=== PATIENT | female | born 1975 | race Caucasian/White ===

== ENCOUNTER 2021-04-04 08:43 | Outpatient (REF) | payer OTHER, SELFPAY ==
[2021-04-04 11:11] LABS: HBc Num1 0.04 S/CO (0.00-0.79); Hepatitis B Core Antibody Nonreactive (Nonreactive); ~HepC Num1 0.36 S/CO (0.00-0.79); ~Hepatitis C Antibody Nonreactive (Nonreactive)
[2021-04-04 11:13] LABS: Syphilis Screen Nonreactive (Nonreactive)
[2021-04-04 11:15] LABS: HIV AB/AG Nonreactive (Nonreactive); HIV Num 1 0.04 S/CO (0.00-0.99)
[2021-04-04 11:19] LABS: HCG Quantitative < 2 mIU/mL; Thyroid Stimulating Hormone 2.43 uIU/mL (0.32-4.0)
[2021-04-05 02:42] LABS: CT PCR NOT DETECTED (Not Detect.); NG PCR NOT DETECTED (Not Detect.)
[2021-04-05 08:30] LABS: BV Int Neg Control Negative (Negative); BV Int Pos Control Positive (Positive)
[2021-04-07 00:12] LABS: Follicle Stimulating Hormone 4.7 mIU/mL
[2021-04-08 09:27] LABS: HPV mRNA E6/E7 rflx Not Detected (Not Detected)
== END 2021-04-04 08:44 | disposition home or self-care (01) ==
LOC: HO.LAB 08:43
PROVIDERS: PCP Internal Medicine; Visit Provider Advanced Practice Midwife
DX: Z01.411 Encounter for gynecological examination (general) (routine) with abnormal findings (principal); Z11.51 Encounter for screening for human papillomavirus (HPV); Z11.4 Encounter for screening for human immunodeficiency virus [HIV]; Z11.3 Encounter for screening for infections with a predominantly sexual mode of transmission; Z20.2 Contact with and (suspected) exposure to infections with a predominantly sexual mode of transmission; N93.0 Postcoital and contact bleeding; N93.9 Abnormal uterine and vaginal bleeding, unspecified; N92.6 Irregular menstruation, unspecified; N88.9 Noninflammatory disorder of cervix uteri, unspecified; E66.01 Morbid (severe) obesity due to excess calories
CPT/HCPCS: 36415; 83001; 84443; 84702; 86704; 86780; 86803; 87389; 87480; 87491; 87510; 87591; 87624; 87660; 88142

== ENCOUNTER 2021-04-08 12:06 | Outpatient (REF) | payer OTHER, SELFPAY ==
[2021-04-08 14:35] LABS: MANUAL DIFF FLAG NO
[2021-04-08 14:48] LABS: Basophils Percent Auto 0.2 % (0-2); Eosinophils Percent Auto 0.4 % (0-4); Hematocrit 36.5 % (37-47); Hemoglobin 11.4 g/dl (12.0-16.0); Imm Gran Abs Auto 0.05 X10*3/uL (0.00-0.03); Imm Gran Pct Auto 0.5 % (0.0-0.4); Lymphocytes Absolute Auto 2.2 X10*3/uL (1.2-4.9); Lymphocytes Percent Auto 23.6 % (20-40); Mean Corpuscular HGB Conc 31.2 g/dl (31.0-35.0); Mean Corpuscular Hemoglobin 25.8 pg (27.0-33.0); Mean Corpuscular Volume 82.6 fL (80-98); Mean Platelet Volume 10.6 fL (9.4-12.3); Monocytes Absolute Auto 0.4 X10*3/uL (0.1-1.2); Monocytes Percent Auto 4.6 % (2-11); Neutrophils Absolute Auto 6.7 X10*3/uL (2.0-8.3); Neutrophils Percent Auto 70.7 % (45-73); Platelet Count 260 X10*3/uL (160-400); Red Blood Count 4.42 X10*6/uL (4.20-5.50); Red Cell Distribution Width 16.7 % (11.0-16.0); White Blood Count 9.4 X10*3/uL (4.8-10.8)
[2021-04-08 15:05] LABS: Estimated Average Glucose 114 mg/dL; Hemoglobin A1c % 5.6 %
[2021-04-08 15:06] LABS: Alanine Aminotransferase 12 U/L (0-31); Albumin Level 3.9 g/dL (3.5-5.0); Alkaline Phosphatase 98 U/L (39-117); Anion Gap 14 (12-20); Aspartate Amino Transferase 11 U/L (5-31); Bilirubin Total 0.4 mg/dL (0.0-1.0); Blood Urea Nitrogen 17 mg/dL (9-16); Carbon Dioxide 28 mmol/L (22-29); Chloride 102 mmol/L (96-108); Estimated Glomerular Filt Rate > 60; Glucose Random 92 mg/dL (60-115); Potassium 3.9 mmol/L (3.3-5.1); Sodium 140 mmol/L (135-145); Total Protein 6.4 g/dL (6.5-8.0)
== END 2021-04-08 12:07 | disposition home or self-care (01) ==
LOC: HO.HMGCLDS 12:06
PROVIDERS: PCP Internal Medicine; Visit Provider Internal Medicine
DX: E66.01 Morbid (severe) obesity due to excess calories (principal); F33.9 Major depressive disorder, recurrent, unspecified; F41.1 Generalized anxiety disorder; I10 Essential (primary) hypertension; R73.03 Prediabetes; Z91.09 Other allergy status, other than to drugs and biological substances
CPT/HCPCS: 36415; 80053; 83036; 85025

== ENCOUNTER 2021-04-13 14:18 | Outpatient (REF) | payer OTHER, SELFPAY ==
--- NOTE | ~2021-04-13 | US_ITS ---
EXAMINATION: PELVIC ULTRASOUND CLINICAL INFORMATION: Bleeding COMPARISON: Previous pelvic ultrasound most recent February 2019 TECHNIQUE: Transabdominal and transvaginal pelvic ultrasound was performed. Transvaginal exam was performed for better visualization of uterus and ovaries. FINDINGS: The uterus is retroverted and measures 9.3 x 4.5 x 4.9 cm in dimension. There is a 2 x 1.3 x 1.9 cm hypoechoic lesion in the right posterior uterine body suggestive of a fibroid. This is unchanged. No other focal uterine lesion is seen. Endometrial thickness is normal measuring 0.8 cm. There are nabothian cysts in the cervix. The right ovary measures 4 x 2.6 x 2.7 cm. There is a 3.3 x 2 x 2 cm right ovarian cyst. The left ovary measures 2.4 x 1.8 x 1.4 cm and is normal-appearing. There is no fluid in the pelvis. US/US pelvic and transvaginal IMPRESSION: Small uterine fibroid. 2 x 3 cm right ovarian cyst.
== END 2021-04-13 14:19 | disposition home or self-care (01) ==
LOC: HO.US 14:18
PROVIDERS: Visit Provider Advanced Practice Midwife
DX: N93.9 Abnormal uterine and vaginal bleeding, unspecified (principal); N93.0 Postcoital and contact bleeding
CPT/HCPCS: 76830; 76856

== ENCOUNTER → 2021-04-27 11:08 | Outpatient (BNVA) | payer OTHER, SELFPAY | PROVIDERS: PCP Internal Medicine; Visit Provider Advanced Practice Midwife ==

== ENCOUNTER 2021-04-29 16:35 | Outpatient (REF) | payer OTHER, SELFPAY | END 2021-04-29 16:36 | disposition home or self-care (01) | LOC: HO.LNP 16:35 | PROVIDERS: Visit Provider Hospitalist | DX: R30.0 Dysuria (principal) | CPT/HCPCS: 87086; 87088; 87186 ==

== ENCOUNTER 2021-05-10 10:15 | Outpatient (REF) | payer OTHER, SELFPAY | END 2021-05-10 10:16 | disposition home or self-care (01) | LOC: HO.LAB 10:15 | PROVIDERS: PCP Internal Medicine; Visit Provider Obstetrics & Gynecology | DX: N93.0 Postcoital and contact bleeding (principal) | CPT/HCPCS: 58100; 88305 ==

== ENCOUNTER 2021-05-11 13:15 | Outpatient (REF) | payer OTHER, SELFPAY ==
--- NOTE | ~2021-05-11 | MM_ITS ---
EXAMINATION: MM SCREENING DIGITAL BREAST TOMOSYNTHESIS, BILATERAL CLINICAL INFORMATION: Screening. Asymptomatic. The lifetime risk of breast cancer based on the Tyrer-Cuzick Model is 8%. COMPARISON: Mammography: 09/07/2015 (baseline) TECHNIQUE: Digital breast tomosynthesis is performed in both the craniocaudal and mediolateral oblique views along with computer-aided detection (CAD). Synthesized 2D images are generated from the tomosynthesis. FINDINGS: There are scattered areas of fibroglandular density (ACR BI-RADS breast composition Category b). The left breast is similar to prior exam 2014. There is no developing density or interval mass or architectural abnormality. Neither breast shows abnormal calcifications. The bilateral axilla and skin contours are unremarkable. Right breast has smooth oval nodule mid 3:00 position more conspicuous on current study and measuring approximately 0.9 x 0.7 cm. This may represent a cyst. Patient will be recalled to further characterize. MM/MM tomosynthesis screening BI IMPRESSION: 1. Right: Smooth oval nodule mid 3:00 position under 1 cm. 2. Left: No mammographic evidence of malignancy. ASSESSMENT: BI-RADS 0: Incomplete - Need Additional Imaging Evaluation RECOMMENDATION: 1. Targeted ultrasound right breast. 2. Radiology department staff will contact the patient for additional imaging. This patient's information was entered into a reminder system with a target due date for their next mammogram.
== END 2021-05-11 13:16 | disposition home or self-care (01) ==
LOC: HO.MAMMO 13:15
PROVIDERS: PCP Internal Medicine; Visit Provider Internal Medicine
DX: Z12.31 Encounter for screening mammogram for malignant neoplasm of breast (principal)
CPT/HCPCS: 77063; 77067

== ENCOUNTER 2021-05-17 13:02 | Outpatient (REF) | payer OTHER, SELFPAY ==
--- NOTE | ~2021-05-17 | US_ITS ---
EXAMINATION: US DIAGNOSTIC ULTRASOUND BREAST, RIGHT CLINICAL INFORMATION: Recall from screening for smooth nodule mid inner right breast just under 1 cm, possibly a cyst. COMPARISON: Mammography 05/11/2021, 09/07/2015 (baseline). TECHNIQUE: Ultrasound right breast is targeted to the inner quadrant with grayscale imaging and color Doppler without and with harmonics. FINDINGS: There is a circumscribed macrolobulated otherwise smooth nodule 2:00 position 7 cm from nipple measuring 1.1 x 0.7 cm. There is no increased or decreased through transmission of sound. No definite internal color flow. This corresponds to the finding on mammography, possibly fibroadenoma. Ultrasound-guided core sampling is recommended to confirm. Results are discussed with the patient at time of visit. Results and recommendation called to office ([facility]) for Dr. Gissell Galvan on 05/17/2021. US/US breast RT limited IMPRESSION: Smooth macrolobulated nodule 1.1 cm 2:00 position without posterior sound characteristics, possibly fibroadenoma. ASSESSMENT: BI-RADS 4: Suspicious (subcategory 4A: Low suspicion for malignancy) RECOMMENDATION: Ultrasound-guided core biopsy right breast nodule. This patient's information was entered into a reminder system with a target due date for their next mammogram.
== END 2021-05-17 13:03 | disposition home or self-care (01) ==
LOC: HO.MAMMO 13:02
PROVIDERS: Visit Provider Internal Medicine
DX: N63.15 Unspecified lump in the right breast, overlapping quadrants (principal)
CPT/HCPCS: 76642

== ENCOUNTER 2021-05-25 09:51 | Outpatient (REF) | payer OTHER, SELFPAY ==
--- NOTE | ~2021-05-25 | MM_ITS ---
EXAMINATION: ULTRASOUND GUIDED CORE BIOPSY BREAST, RIGHT POST PROCEDURE DIGITAL MAMMOGRAM, RIGHT CLINICAL INFORMATION: Smooth nodule mid inner right breast, possibly fibroadenoma. COMPARISON: Mammography 05/11/2021, targeted right breast ultrasound 05/17/2021. FINDINGS: Proper informed consent is obtained from the patient after discussion of the procedure, potential risks and complications, and alternatives. Patient was given an opportunity for questions. The patient appeared to understand. The patient consented to the procedure and signed the consent form. GUIDANCE: Ultrasound-guided; aseptic technique. LESION: Smooth macrolobulated nodule 2:00 right breast, possibly fibroadenoma. APPROACH: Oblique mediolateral. ANESTHESIA: 15 mL 1% lidocaine. DERMATOTOMY: Single skin mayra dermatotomy performed. NEEDLE: 14-gauge Achieve core biopsy device with 13.5-gauge co-axial guide needle. CORES: 5. CLIP: HydroMARK; shape: butterfly. POST PROCEDURE UNILATERAL DIGITAL MAMMOGRAM: The post biopsy mammogram is performed in separate room using separate digital mammography equipment from the biopsy procedure. CC and ML views are obtained. There are scattered areas of fibroglandular density (breast composition category: b). The clip marker is in position. No gross hematoma. The patient tolerated the procedure well. No immediate complications. Home instructions reviewed with the patient. Final pathology results are pending. MM/MM diagnostic mammo unilat RT IMPRESSION: 1. Status post ultrasound-guided core biopsy right breast. 2. Clip placed: HydroMARK; shape: butterfly. 3. Pathology pending. An addendum report will be issued.
== END 2021-05-25 09:52 | disposition home or self-care (01) ==
LOC: HO.MAMMO 09:51
PROVIDERS: Visit Provider Surgery
DX: N63.15 Unspecified lump in the right breast, overlapping quadrants (principal)
CPT/HCPCS: 19083; 77065; 88305; 88341; 88342; 88360; 99202

== ENCOUNTER → 2021-06-01 09:56 | Outpatient (BNVA) | payer OTHER, SELFPAY | PROVIDERS: PCP Internal Medicine; Visit Provider Surgery | DX: N63.10 Unspecified lump in the right breast, unspecified quadrant (principal) | CPT/HCPCS: 99212 ==

== ENCOUNTER 2021-08-02 10:41 | Outpatient (REF) | payer OTHER, SELFPAY | END 2021-08-02 10:42 | disposition home or self-care (01) | LOC: HO.HMGCLDS 10:41 | PROVIDERS: PCP Internal Medicine; Visit Provider Pediatrics | DX: J30.5 Allergic rhinitis due to food (principal) | CPT/HCPCS: 36415 ==

== ENCOUNTER 2021-08-22 09:23 | Outpatient (REF) | payer OTHER, SELFPAY ==
[2021-08-22 10:41] LABS: MANUAL DIFF FLAG NO
[2021-08-22 10:58] LABS: Basophils Percent Auto 0.2 % (0-2); Eosinophils Absolute Auto 0.2 X10*3/uL (0.0-0.4); Eosinophils Percent Auto 1.7 % (0-4); Hematocrit 33.8 % (37-47); Imm Gran Abs Auto 0.02 X10*3/uL (0.00-0.03); Imm Gran Pct Auto 0.2 % (0.0-0.4); Lymphocytes Absolute Auto 2.4 X10*3/uL (1.2-4.9); Lymphocytes Percent Auto 27.5 % (20-40); Mean Corpuscular HGB Conc 32.5 g/dl (31.0-35.0); Mean Corpuscular Hemoglobin 26.1 pg (27.0-33.0); Mean Corpuscular Volume 80.3 fL (80-98); Mean Platelet Volume 10.5 fL (9.4-12.3); Monocytes Absolute Auto 0.4 X10*3/uL (0.1-1.2); Monocytes Percent Auto 4.3 % (2-11); Neutrophils Absolute Auto 5.8 X10*3/uL (2.0-8.3); Neutrophils Percent Auto 66.1 % (45-73); Platelet Count 253 X10*3/uL (160-400); Red Blood Count 4.21 X10*6/uL (4.20-5.50); Red Cell Distribution Width 16.3 % (11.0-16.0); White Blood Count 8.8 X10*3/uL (4.8-10.8)
[2021-08-22 11:24] LABS: Alanine Aminotransferase 15 U/L (0-31); Albumin Level 3.7 g/dL (3.5-5.0); Alkaline Phosphatase 82 U/L (39-117); Anion Gap 10 (12-20); Aspartate Amino Transferase 13 U/L (5-31); Bilirubin Total 0.4 mg/dL (0.0-1.0); Blood Urea Nitrogen 14 mg/dL (9-16); Calcium 8.7 mg/dL (8.4-10.2); Carbon Dioxide 27 mmol/L (22-29); Chloride 106 mmol/L (96-108); Cholesterol 192 mg/dL; Estimated Glomerular Filt Rate > 60; Glucose Random 113 mg/dL (60-115); HDL Cholesterol 45 mg/dL; LDL Cholesterol Calculated 129 mg/dl; Potassium 3.6 mmol/L (3.3-5.1); Sodium 139 mmol/L (135-145); Triglycerides 92 mg/dL
[2021-08-23 18:31] LABS: CRP High Sensitivity >10.0 mg/L
== END 2021-08-22 09:24 | disposition home or self-care (01) ==
LOC: HO.LAB 09:23
PROVIDERS: PCP Internal Medicine; Referring Provider Internal Medicine; Visit Provider Internal Medicine Cardiovascular Disease
DX: I25.10 Atherosclerotic heart disease of native coronary artery without angina pectoris (principal); I45.10 Unspecified right bundle-branch block; R00.2 Palpitations; I10 Essential (primary) hypertension; E78.5 Hyperlipidemia, unspecified; F41.1 Generalized anxiety disorder; F33.9 Major depressive disorder, recurrent, unspecified; R73.03 Prediabetes; Z91.89 Other specified personal risk factors, not elsewhere classified; Z91.09 Other allergy status, other than to drugs and biological substances; Z79.899 Other long term (current) drug therapy; Z87.891 Personal history of nicotine dependence
CPT/HCPCS: 36415; 80053; 80061; 85025; 86141; 99202

== ENCOUNTER 2021-09-05 13:31 | Outpatient (REF) | payer OTHER, SELFPAY ==
[2021-09-05 17:05] LABS: Cholesterol 147 mg/dL; HDL Cholesterol 41 mg/dL; LDL Cholesterol Calculated 82 mg/dl; Triglycerides 121 mg/dL
== END 2021-09-05 13:32 | disposition home or self-care (01) ==
LOC: HO.HMGCLDS 13:31
PROVIDERS: PCP Internal Medicine; Visit Provider Internal Medicine Cardiovascular Disease
DX: I10 Essential (primary) hypertension (principal)
CPT/HCPCS: 36415; 80061

== ENCOUNTER 2021-09-09 11:14 | Outpatient (REF) | payer OTHER, SELFPAY ==
[2021-09-09 13:54] LABS: MANUAL DIFF FLAG NO
[2021-09-09 14:01] LABS: Basophils Percent Auto 0.4 % (0-2); Eosinophils Absolute Auto 0.1 X10*3/uL (0.0-0.4); Eosinophils Percent Auto 0.8 % (0-4); Hematocrit 37.4 % (37.0-47.0); Hemoglobin 11.9 g/dl (12.0-16.0); Imm Gran Abs Auto 0.02 X10*3/uL (0.00-0.03); Imm Gran Pct Auto 0.3 % (0.0-0.4); Lymphocytes Absolute Auto 2.4 X10*3/uL (1.2-4.9); Lymphocytes Percent Auto 33.9 % (20-40); Mean Corpuscular HGB Conc 31.8 g/dl (31.0-35.0); Mean Corpuscular Hemoglobin 26.4 pg (27.0-33.0); Mean Corpuscular Volume 83.1 fL (80.0-98.0); Mean Platelet Volume 11.1 fL (9.4-12.3); Monocytes Absolute Auto 0.4 X10*3/uL (0.1-1.2); Monocytes Percent Auto 5.5 % (2-11); Neutrophils Absolute Auto 4.2 x10*3/uL (2.0-8.3); Neutrophils Percent Auto 59.1 % (45-73); Platelet Count 243 X10*3/uL (160-400); Red Cell Distribution Width 16.3 % (11.0-16.0); White Blood Count 7.1 X10*3/uL (4.8-10.8)
[2021-09-09 14:24] LABS: C Reactive Protein 1.72 mg/dL (< or = 0.50)
== END 2021-09-09 11:15 | disposition home or self-care (01) ==
LOC: HO.HMGCLDS 11:14
PROVIDERS: PCP Internal Medicine; Visit Provider Internal Medicine Cardiovascular Disease
DX: D64.9 Anemia, unspecified (principal); R79.82 Elevated C-reactive protein (CRP)
CPT/HCPCS: 36415; 85025; 86140

== ENCOUNTER → 2021-09-26 10:12 | Outpatient (REF) | payer OTHER, SELFPAY ==
--- NOTE | 2021-09-26 10:16 | CA_ITS ---
Transthoracic Echocardiogram Patient (Last, First, Middle): Lilia Hoffman A Gender: Female Date of : 1975 Age: 46 Procedure Date: 09/26/2021 Procedure Type: Transthoracic Echocardiogram Location: OP Height: 170.18 cm Weight: 136.08 kg BSA: 2.40 m2 Heart Rate: bpm BP: 120 / 80 mmHg Cnp: EMMANUELLE Referring MD: Naveen Hanley MD Symptoms: R00.2 - Palpitations Study Quality: Fair ECG Rhythm: Sinus Conclusions: - The left ventricular systolic function is normal. The calculated ejection fraction is 59% by biplane method. - No obvious valvular pathology seen on this study. Findings Left Ventricle Normal left ventricular cavity size. There is normal left ventricular wall thickness. The left ventricular systolic function is normal. The calculated ejection fraction is 59% by biplane method. There is no evidence of regional wall motion abnormalities. Diastolic function is normal for age. Right Ventricle Normal right ventricular cavity size and systolic function. Atria Both atria are normal in size. Aortic Valve There is a normal trileaflet aortic valve. There is no aortic valve stenosis. There is no aortic valve regurgitation. Mitral Valve The mitral valve appears normal. There is trace mitral valve regurgitation. There is no mitral valve stenosis. Pulmonic Valve The pulmonic valve was not well visualized. Tricuspid Valve Normal tricuspid valve structure. There is trace tricuspid valve regurgitation. The pulmonary artery systolic pressure is normal. Great Vessels The aortic annulus, sinuses of valsalva, asc aorta, and aortic arch are normal in size. Venous The inferior vena cava is normal in size and collapses greater than 50% with inspiration. Pericardium/Pleural There is no evidence of pericardial effusion. Prior Study Comparison No significant change compared to prior study dated: 09/07/2015. Recommendations, Care & Conclusions No obvious valvular pathology seen on this study. Measurements 2D Linear Measurements IVSd: 0.85 0.6-0.9/0.6-1.0 cm LVIDd: 5.65 3.9-5.3/4.2-5.9 cm LVIDd Index: 2.35 2.4-3.2/2.2-3.1 cm/m2 LVIDs: 3.56 2.0-3.6 cm LVPWd: 0.83 0.7-1.1 cm Ao Root: 3.00 2.1-3.5 cm LA Diam: 3.60 2.7-3.8/3.0-4.0 cm LAIDs Index: 1.50 1.5-2.3 cm/m2 LV Mass: 221.17 67-162/88-224 g LV Mass Index: 92.15 43-95/49-115 g/m2 LVOT Diam: 2.30 3.0+(-)1.3 cm 2D Systolic Function EF 4C: 59.50 >55% EF 2C: 57.90 >55% EF BiP: 59.10 >55% Mitral Valve MV Pk E: 0.74 MV PK A: 0.58 MV Decel Time: 255.00 E/A: 1.30 E'Lateral: 10.20 E'Medial: 9.14 E/E' Med: 8.10 E/E' Lat: 7.20 PHT: 75.00 MVA PHT: 2.93 Decel [place]: 2.89 Aortic Valve AoV Pk Lambert: 1.52 AoV Mn Lambert: 1.00 AoV VTI: 0.35 AoV Pk Grad: 9.00 Aov Mn Grad: 5.00 GHULAM Cont.VTI: 2.46 LVOT LVOT Pk Lambert: 0.94 LVOT Mn Lambert: 0.64 LVOT VTI: 0.21 LVOT Pk Grad: 4.00 LVOT Mn Grad: 2.00 LVOT Diam: 2.30 LVOT Area: 4.15 Diastolic Function MV Pk E: 0.74 MV Pk A: 0.58 E/A: 1.30 E'Medial: 9.14 E/E' Med: 8.10 E' Laterial: 10.20 E/E' Lat: 7.20 Right Ventricle TAPSE (mm): 2.38 TVS' Lambert: 11.50 Tricuspid Valve TR Pk Lambert: 1.98 TR Pk Grad: 16.00 RA Press: 3.00 RVSP: 19.00 Great Vessels Aorta Ao Root-2D: 3.00 2.0-3.7 cm Ao Asc: 3.30 2.1-3.4 cm Ao Arch: 2.60 Pulmonary Valve PV Pk Lambert: 1.29 Peak PV Grad: 7.00 Updated in Other Vendor System with Status of Final Rommel Ramirez MD electronically signed on 09/27/2021 4:47:21 PM with status of Final
--- NOTE | 2021-09-26 10:16 | HM_ITS ---
Conclusion: 1. Patient was monitored for total period of 6 days and 23 hours 2. Baseline of normal sinus rhythm with average heart of 77 beats per minute 3. No significant pauses or bradycardia noted 4. Rare ectopy 5. No patient reported events MTDD
== END ==
LOC: HO.CARD 10:12
PROVIDERS: Visit Provider Internal Medicine Cardiovascular Disease
DX: R00.2 Palpitations (principal)
CPT/HCPCS: 93242; 93306

== ENCOUNTER → 2021-10-11 14:52 | Outpatient (BNVA) | payer OTHER, SELFPAY | PROVIDERS: PCP Internal Medicine; Referring Provider Internal Medicine; Visit Provider Nurse Practitioner Family | DX: R00.2 Palpitations (principal); I10 Essential (primary) hypertension; E66.01 Morbid (severe) obesity due to excess calories; R73.03 Prediabetes; Z82.49 Family history of ischemic heart disease and other diseases of the circulatory system | CPT/HCPCS: 99212 ==

== ENCOUNTER → 2022-01-10 12:25 | Outpatient (BNVA) | payer OTHER, SELFPAY | PROVIDERS: PCP Internal Medicine; Referring Provider Internal Medicine; Visit Provider Internal Medicine Cardiovascular Disease | DX: I25.10 Atherosclerotic heart disease of native coronary artery without angina pectoris (principal); I10 Essential (primary) hypertension; R00.2 Palpitations; Z79.899 Other long term (current) drug therapy | CPT/HCPCS: 99212 ==

== ENCOUNTER 2022-07-21 12:53 | Outpatient (REF) | payer OTHER, SELFPAY ==
[2022-07-21 13:52] LABS: MANUAL DIFF FLAG NO
[2022-07-21 14:05] LABS: Basophils Percent Auto 0.4 % (0-2); Eosinophils Absolute Auto 0.1 X10*3/uL (0.0-0.4); Eosinophils Percent Auto 1.3 % (0-4); Hematocrit 38.7 % (37.0-47.0); Hemoglobin 12.4 g/dl (12.0-16.0); Imm Gran Abs Auto 0.02 X10*3/uL (0.00-0.03); Imm Gran Pct Auto 0.3 % (0.0-0.4); Lymphocytes Absolute Auto 2.4 X10*3/uL (1.2-4.9); Lymphocytes Percent Auto 30.8 % (20-40); Mean Corpuscular Hemoglobin 26.3 pg (27.0-33.0); Mean Corpuscular Volume 82.2 fL (80.0-98.0); Mean Platelet Volume 10.8 fL (9.4-12.3); Monocytes Absolute Auto 0.4 X10*3/uL (0.1-1.2); Monocytes Percent Auto 4.8 % (2-11); Neutrophils Absolute Auto 4.9 x10*3/uL (2.0-8.3); Neutrophils Percent Auto 62.4 % (45-73); Platelet Count 258 X10*3/uL (160-400); Red Blood Count 4.71 X10*6/uL (4.20-5.50); White Blood Count 7.9 X10*3/uL (4.8-10.8)
[2022-07-21 14:27] LABS: Alanine Aminotransferase 17 U/L (0-31); Albumin Level 4.1 g/dL (3.5-5.0); Alkaline Phosphatase 83 U/L (39-117); Anion Gap 16 (12-20); Aspartate Amino Transferase 14 U/L (5-31); Bilirubin Total 0.4 mg/dL (0.0-1.0); Blood Urea Nitrogen 17 mg/dL (9-16); C Reactive Protein 1.19 mg/dL (< or = 0.50); Calcium 9.4 mg/dL (8.4-10.2); Carbon Dioxide 28 mmol/L (22-29); Chloride 103 mmol/L (96-108); Estimated Glomerular Filt Rate > 60; Glucose Random 85 mg/dL (60-115); Potassium 3.8 mmol/L (3.3-5.1); Sodium 143 mmol/L (135-145); Total Protein 6.8 g/dL (6.5-8.0)
[2022-07-21 14:41] LABS: TSH reflex Free T4 2.32 uIU/mL (0.32-4.0)
== END 2022-07-21 12:54 | disposition home or self-care (01) ==
LOC: HO.HMGCLDS 12:53
PROVIDERS: PCP Internal Medicine; Visit Provider Internal Medicine
DX: Z00.01 Encounter for general adult medical examination with abnormal findings (principal); E66.01 Morbid (severe) obesity due to excess calories; F33.9 Major depressive disorder, recurrent, unspecified; F41.1 Generalized anxiety disorder; M25.50 Pain in unspecified joint; R73.03 Prediabetes; I25.10 Atherosclerotic heart disease of native coronary artery without angina pectoris; Z91.09 Other allergy status, other than to drugs and biological substances; M17.0 Bilateral primary osteoarthritis of knee; R79.82 Elevated C-reactive protein (CRP); I10 Essential (primary) hypertension
CPT/HCPCS: 36415; 80053; 84443; 85025; 86140

== ENCOUNTER → 2022-09-28 10:00 | Outpatient (BNVA) | payer OTHER, SELFPAY | PROVIDERS: PCP Internal Medicine; Visit Provider Nurse Practitioner Family | DX: R06.83 Snoring (principal); R40.0 Somnolence | CPT/HCPCS: 99202 ==

== ENCOUNTER → 2022-12-03 20:30 | Outpatient (REF) | payer OTHER, SELFPAY | LOC: HO.SL 20:30 | PROVIDERS: Visit Provider Nurse Practitioner Family | DX: G47.9 Sleep disorder, unspecified (principal); R06.83 Snoring | CPT/HCPCS: 95810 ==

== ENCOUNTER → 2022-12-22 10:23 | Outpatient (BNVA) | payer OTHER, SELFPAY | PROVIDERS: PCP Internal Medicine; Visit Provider Nurse Practitioner Family | DX: G47.9 Sleep disorder, unspecified (principal); R06.83 Snoring; R53.83 Other fatigue | CPT/HCPCS: 99212 ==

== ENCOUNTER → 2023-01-11 13:00 | Outpatient (BNVA) | payer OTHER, SELFPAY | PROVIDERS: PCP Internal Medicine; Referring Provider Internal Medicine; Visit Provider Internal Medicine Cardiovascular Disease | DX: I25.10 Atherosclerotic heart disease of native coronary artery without angina pectoris (principal); I10 Essential (primary) hypertension; E78.5 Hyperlipidemia, unspecified; E66.01 Morbid (severe) obesity due to excess calories; Z68.43 Body mass index [BMI] 50.0-59.9, adult | CPT/HCPCS: 93005; 99212 ==

== ENCOUNTER 2023-04-16 12:32 | Outpatient (REF) | payer OTHER, SELFPAY ==
--- NOTE | ~2023-04-16 | MM_ITS ---
EXAMINATION: MM SCREENING DIGITAL BREAST TOMOSYNTHESIS, BILATERAL CLINICAL INFORMATION: Screening. Asymptomatic. Benign right ultrasound-guided core biopsy 05/25/2021 (fibroadenoma). The lifetime risk of breast cancer based on the Tyrer-Cuzick Model is 9%. COMPARISON: Mammography: 05/25/2021, 05/11/2021, 09/07/2015 (baseline) TECHNIQUE: Digital breast tomosynthesis is performed in both the craniocaudal and mediolateral oblique views along with computer-aided detection (CAD). Synthesized 2D images are generated from the tomosynthesis. Additional left MLO view is provided. FINDINGS: There are scattered areas of fibroglandular density (ACR BI-RADS breast composition Category b). There are no significant masses, abnormal calcifications, or other abnormalities. Parenchymal pattern is similar to prior exam. There are scattered minor asymmetries again seen. No architectural abnormality. There is biopsy clip marker mid upper inner right breast. The axilla and skin contours are unremarkable. MM/MM tomosynthesis screening BI IMPRESSION: No mammographic evidence of malignancy. ASSESSMENT: BI-RADS 2: Benign RECOMMENDATION: Routine annual mammography screening. This patient's information was entered into a reminder system with a target due date for their next mammogram.
== END 2023-04-16 12:33 | disposition home or self-care (01) ==
LOC: HO.MAMMO 12:32
PROVIDERS: PCP Internal Medicine; Visit Provider Internal Medicine
DX: Z12.31 Encounter for screening mammogram for malignant neoplasm of breast (principal)
CPT/HCPCS: 77063; 77067

== ENCOUNTER 2023-05-15 11:21 | Outpatient (AMB) | payer OTHER, SELFPAY ==
[2023-05-15 11:27] VITALS: BP 120/68; PULSE 105; O2SAT 98; BMI 39.8
--- NOTE | 2023-05-15 11:27 | MHC.PC.OV ---
Vital Signs 05/15/23 11:27 Height 5 ft 6.7 in Weight 252 lb 2 oz BMI 39.8 BP 120/68 Blood Pressure Location Lt brachial Position Sitting Pulse 105 H Pulse Source Pulse Oximeter Pulse Oximetry (%) 98 Oxygen Delivery Method Room Air Intake Visit Reasons: Annual PE Allergies animal dander [PET DANDER] Allergy (Unknown, Verified 05/15/23 11:30) Full body whelts environmental allergies Allergy (Unknown, Verified 05/15/23 11:30) Full body whelts erythromycin base Allergy (Unknown, Verified 05/15/23 11:30) GI irritation, abd pain, flushing flaxseed Allergy (Unknown, Verified 05/15/23 11:30) Unknown mold [MOLD] Allergy (Unknown, Verified 05/15/23 11:30) FUll body whelts amoxicillin [From Augmentin] Adverse Reaction (Intermediate, Verified 05/15/23 11:30) Stomach upset, Nausea, vomiting clavulanic acid [From Augmentin] Adverse Reaction (Intermediate, Verified 05/15/23 11:30) Stomach upset, Nausea, vomiting gold sodium thiosulfate Allergy (Severe, Uncoded 01/19/23 13:11) Swelling Amoranth Allergy (Unknown, Uncoded 01/19/23 13:11) Unknown Tea Allergy (Unknown, Uncoded 01/19/23 13:11) unknown Medication List - Last Reconciled 05/15/23 by Zohaib Galvan MD ascorbic acid (vitamin C) ER 500 mg PO .everyother day buspirone 10 mg PO BID 90 days cetirizine (Zyrtec) 10 mg PO DAILY PRN cranberry 400 mg PO DAILY epinephrine IM ferrous sulfate 324 mg PO DAILY lisinopril-hydrochlorothiazide 20-25 mg 1 tab PO DAILY 90 days magnesium 200 mg PO DAILY rosuvastatin 20 mg PO DAILY Tobacco use date assessed: 05/15/23 Dental Screening Dental Screen Date: 05/15/23 Did you have a dental visit in the last 12 months?: No Did you have a dental problem in the last 6 months where you did not have access to dental care?: No Was dental information given to patient?: No HPI Annual PE HPI Details Annual physical exam Blood pressure is stable patient is taking all her medication She is also seeing psych med provider and is in process of tapering Cymbalta patient is on buspirone and she will continue that for anxiety Mammogram was March of this year 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 Follow-up 6 months physical exam 1 year Physical exam was limited due to body habitus Patient uses cane to walk Breast exams through [facility] Medical History Breast mass, right Degenerative disc disease Family history of early CAD High cholesterol History of anxiety History of depression Hx of migraine headaches Hypertension Morbid obesity Morbid obesity Osteoarthritis Panic attacks PTSD (post-traumatic stress disorder) TMJ (dislocation of temporomandibular joint) Surgical History History of foot surgery History of knee surgery Family History Father Diabetes mellitus HTN (hypertension) Hyperlipidemia CVD (cardiovascular disease) Myocardial infarction Stroke Mother Diabetes mellitus HTN (hypertension) Cervical cancer Maternal Grandmother Alzheimer's disease Maternal Grandfather Alzheimer's disease Paternal Grandfather Brain cancer Tongue cancer Paternal Grandmother Breast cancer Maternal Aunt Diabetes mellitus CVD (cardiovascular disease) Heart disease Brother No problems noted. Brother No problems noted. Sister No problems noted. Sister No problems noted. Son No problems noted. Son No problems noted. Son No problems noted. Daughter No problems noted. Other Mental health disorder Substance use disorder Social History Housing: House Alcohol intake: current Alcohol intake frequency: holidays/special occasions only Patient Tobacco Use Status: Former Tobacco user (15 years ago ) Years Smoked: 10 years e-Cigarette/Vaping Use: Never Used service: No Current occupational status: unemployed Cognitive needs: No Hearing needs: No Vision needs: Yes Female Reproductive History Menstrual Age of Menarche: 11 Questionnaire Thrive Questionnaire Date Thrive assessed: 11/21/22 AUDIT C Alcohol Use Questionnaire (AUDIT-C) 1. How often do you have a drink containing alcohol?: Never 3. How often do you have six or more drinks on one occasion?: Never Total Score: 0 Score Reviewed/Action Taken: Yes CRYSTAL-7 AMB Questionnaire CRYSTAL-7 Date CRYSTAL - 7 assessed: 11/21/22 Source: Developed by Drs. Goyo Gil, Rupali Romeo, Heladio Tam and colleagues, with an educational clinton from [employer]. Review of Systems Const Denies chills, Denies fever(s) and Denies headache(s) Eyes Denies blurry vision ENT Denies headache(s), Denies nasal discharge, Denies nasal obstruction, Denies odynophagia and Denies sinus pain Card Denies chest pain at rest and Denies chest pain with activity Resp Denies cough and Denies hemoptysis GI Denies diarrhea, Denies odynophagia, Denies vomiting and Denies hematemesis Reports as per HPI Skin/Breast Reports as per HPI Neuro Denies Neuro-related abnormal movements, Denies Abnormal speech present and Denies headache(s) Psych Denies mood swings and Denies paranoia Endo Reports as per HPI Marciano/Lymph Reports as per HPI Aller/Immun Reports as per HPI Physical exam (Primary Care) Vital Signs: Last Vital Signs Pulse 105 H 05/15/23 11:27 BP 120/68 05/15/23 11:27 Pulse Ox 98 05/15/23 11:27 Oxygen Delivery Method Room Air 05/15/23 11:27 BMI result Body Mass Index 39.8 Tobacco/Smoking Status: Tobacco use Status Tobacco use date assessed 05/15/23 05/15/23 11:34 Patient Tobacco Use Status Former Tobacco user (15 05/15/23 11:34 years ago ) e-Cigarette/Vaping Use Never Used 05/15/23 11:34 Thrive Assessment: Date of Thrive Assessment Date Thrive assessed 11/21/22 05/15/23 11:34 Const General: cooperative, comfortable and no acute distress Orientation/consciousness: patient oriented x3 HENMT Head: Yes normocephalic and Yes atraumatic Eyes General: appearance normal, both eyes and all related structures Pupils: Equal, round and reactive pupils present EOM: EOMs intact bilaterally Neck Neck: Yes supple and No lymphadenopathy Thyroid: Thyroid normal Lymphatic: no lymphadenopathy noted Resp Effort & Inspection: normal respiratory effort and able to speak in complete sentences Auscultation: clear to auscultation bilaterally Cardio Heart sounds: S1 normal heart sound present and S2 normal heart sound present GI Palpation (GI): Soft to palpation and nontender Auscultation: normal bowel sounds General: Yes no CVA tenderness Back/Spine/Pelvis Back: no CVA tenderness Skin General skin exam: elasticity normal and turgor normal Neuro General: patient oriented x3 Cranial nerves: Yes Equal, round and reactive pupils present Speech: No Abnormal speech present Extrem General: Yes normal exam except as noted and No edema Assessment and Plan Assessment & Plan (1) Encounter for general adult medical examination with abnormal findings: Code(s): Z00.01 - Encounter for general adult medical examination with abnormal findings (2) Anxiety, generalized: Code(s): F41.1 - Generalized anxiety disorder (3) Major depression, recurrent: Code(s): F33.9 - Major depressive disorder, recurrent, unspecified (4) Environmental allergies: Code(s): Z91.09 - Other allergy status, other than to drugs and biological substances (5) Pre-diabetes: Code(s): R73.03 - Prediabetes (6) Hypertension: Code(s): I10 - Essential (primary) hypertension (7) Daytime sleepiness: Code(s): R40.0 - Somnolence (8) Upper back pain: Code(s): M54.9 - Dorsalgia, unspecified Plan Annual physical exam Blood pressure is stable patient is taking all her medication She is also seeing psych med provider and is in process of tapering Cymbalta patient is on buspirone and she will continue that for anxiety Mammogram was March of this year Patient also sees feed and farm management adviser once a year last appointment was December of this year Due for labs to be done fasting Patient is requesting a chiropractor referral for chronic upper back pain which I have placed for her. Follow-up 6 months physical exam 1 year Physical exam was limited due to body habitus Patient uses cane to walk Breast exams through [facility] Orders: Orders Comprehensive Ina. Panel Fast Today F33.9 - Major depressive disorder, recurrent, unspecified, F41.1 - Generalized anxiety disorder, I10 - Essential (primary) hypertension, R40.0 - Somnolence, R73.03 - Prediabetes, Z00.01 - Encounter for general adult medical examination with abnormal findings, Z91.09 - Other allergy status, other than to drugs and biological substances Lipid Panel Today F33.9 - Major depressive disorder, recurrent, unspecified, F41.1 - Generalized anxiety disorder, I10 - Essential (primary) hypertension, R40.0 - Somnolence, R73.03 - Prediabetes, Z00.01 - Encounter for general adult medical examination with abnormal findings, Z91.09 - Other allergy status, other than to drugs and biological substances TSH reflex Free T4 Today F33.9 - Major depressive disorder, recurrent, unspecified, F41.1 - Generalized anxiety disorder, I10 - Essential (primary) hypertension, R40.0 - Somnolence, R73.03 - Prediabetes, Z00.01 - Encounter for general adult medical examination with abnormal findings, Z91.09 - Other allergy status, other than to drugs and biological substances Complete Blood Count Auto Diff Today F33.9 - Major depressive disorder, recurrent, unspecified, F41.1 - Generalized anxiety disorder, I10 - Essential (primary) hypertension, R40.0 - Somnolence, R73.03 - Prediabetes, Z00.01 - Encounter for general adult medical examination with abnormal findings, Z91.09 - Other allergy status, other than to drugs and biological substances Referrals Chiropractic Referral M54.9 - Dorsalgia, unspecified Coding Level of Care Code Est Pt Prev Care 40-64y([id number]) Diagnoses Encounter for general adult medical examination with abnormal findings Z00.01 Anxiety, generalized F41.1 Major depression, recurrent F33.9 Environmental allergies Z91.09 Pre-diabetes R73.03 Hypertension I10 Daytime sleepiness R40.0 Upper back pain M54.9
== END 2023-05-15 11:53 | disposition home or self-care (01) ==
PROVIDERS: Visit Provider Internal Medicine
DX: Z00.01 Encounter for general adult medical examination with abnormal findings (principal); F33.9 Major depressive disorder, recurrent, unspecified; Z91.09 Other allergy status, other than to drugs and biological substances; I10 Essential (primary) hypertension; R40.0 Somnolence; F41.1 Generalized anxiety disorder; R73.03 Prediabetes; M54.9 Dorsalgia, unspecified
CPT/HCPCS: 99396

== ENCOUNTER 2023-05-15 11:54 | Outpatient (REF) | payer OTHER, SELFPAY ==
[2023-05-15 13:31] LABS: MANUAL DIFF FLAG NO
[2023-05-15 13:58] LABS: Basophils Percent Auto 0.4 % (0-2); Eosinophils Absolute Auto 0.2 X10*3/uL (0.0-0.4); Eosinophils Percent Auto 1.8 % (0-4); Hematocrit 40.6 % (37.0-47.0); Hemoglobin 13.3 g/dl (12.0-16.0); Imm Gran Abs Auto 0.07 X10*3/uL (0.00-0.03); Imm Gran Pct Auto 0.7 % (0.0-0.4); Lymphocytes Absolute Auto 2.5 X10*3/uL (1.2-4.9); Lymphocytes Percent Auto 24.6 % (20-40); Mean Corpuscular HGB Conc 32.8 g/dl (31.0-35.0); Mean Corpuscular Hemoglobin 28.4 pg (27.0-33.0); Mean Corpuscular Volume 86.8 fL (80.0-98.0); Mean Platelet Volume 10.9 fL (9.4-12.3); Monocytes Absolute Auto 0.5 X10*3/uL (0.1-1.2); Monocytes Percent Auto 4.6 % (2-11); Neutrophils Absolute Auto 6.8 x10*3/uL (2.0-8.3); Neutrophils Percent Auto 67.9 % (45-73); Platelet Count 254 X10*3/uL (160-400); Red Blood Count 4.68 X10*6/uL (4.20-5.50); Red Cell Distribution Width 14.6 % (11.0-16.0)
[2023-05-15 15:01] LABS: Alanine Aminotransferase 30 U/L (0-31); Alkaline Phosphatase 88 U/L (39-117); Anion Gap 15 (12-20); Aspartate Amino Transferase 20 U/L (5-31); Bilirubin Total 0.4 mg/dL (0.0-1.0); Blood Urea Nitrogen 14 mg/dL (9-16); Calcium 9.4 mg/dL (8.4-10.2); Carbon Dioxide 27 mmol/L (22-29); Chloride 102 mmol/L (96-108); Cholesterol 154 mg/dL; Estimated Glomerular Filt Rate > 60; Glucose Fasting 142 mg/dL (60-99); Glucose Random 141 mg/dL (60-115); HDL Cholesterol 51 mg/dL; LDL Cholesterol Calculated 71 mg/dl; Potassium 3.5 mmol/L (3.3-5.1); Sodium 140 mmol/L (135-145); Total Protein 6.8 g/dL (6.5-8.0); Triglycerides 160 mg/dL
[2023-05-15 15:06] LABS: TSH reflex Free T4 3.66 uIU/mL (0.32-4.0)
[2023-05-17 13:23] LABS: CRP High Sensitivity >10.0 mg/L
== END 2023-05-15 11:55 | disposition home or self-care (01) ==
LOC: HO.HMGCLDS 11:54
PROVIDERS: Internal Medicine Cardiovascular Disease; PCP Internal Medicine; Visit Provider Internal Medicine
DX: Z00.01 Encounter for general adult medical examination with abnormal findings (principal); I10 Essential (primary) hypertension; F33.9 Major depressive disorder, recurrent, unspecified; F41.1 Generalized anxiety disorder; R40.0 Somnolence; R73.03 Prediabetes; I25.10 Atherosclerotic heart disease of native coronary artery without angina pectoris; E78.5 Hyperlipidemia, unspecified; Z91.09 Other allergy status, other than to drugs and biological substances
CPT/HCPCS: 36415; 80053; 80061; 84443; 85025; 86141

== ENCOUNTER 2023-06-01 07:33 | Outpatient (AMB) | payer OTHER, SELFPAY ==
--- NOTE | 2023-06-01 07:28 | A.OFFPC_ITS ---
Intake Visit Reasons: Follow up Labs~ Allergies animal dander [PET DANDER] Allergy (Unknown, Verified 06/01/23 07:29) Full body whelts environmental allergies Allergy (Unknown, Verified 06/01/23 07:29) Full body whelts erythromycin base Allergy (Unknown, Verified 06/01/23 07:29) GI irritation, abd pain, flushing flaxseed Allergy (Unknown, Verified 06/01/23 07:29) Unknown mold [MOLD] Allergy (Unknown, Verified 06/01/23 07:29) FUll body whelts amoxicillin [From Augmentin] Adverse Reaction (Intermediate, Verified 06/01/23 07:29) Stomach upset, Nausea, vomiting clavulanic acid [From Augmentin] Adverse Reaction (Intermediate, Verified 06/01/23 07:29) Stomach upset, Nausea, vomiting gold sodium thiosulfate Allergy (Severe, Uncoded 06/01/23 07:29) Swelling Amoranth Allergy (Unknown, Uncoded 06/01/23 07:29) Unknown Tea Allergy (Unknown, Uncoded 06/01/23 07:29) unknown Medication List - Last Reconciled 06/01/23 by Zohaib Galvan MD ascorbic acid (vitamin C) ER 500 mg PO .everyother day buspirone 10 mg PO BID 90 days cetirizine (Zyrtec) 10 mg PO DAILY PRN epinephrine IM ferrous sulfate 324 mg PO DAILY lisinopril-hydrochlorothiazide 20-25 mg 1 tab PO DAILY 90 days magnesium 400 mg PO DAILY rosuvastatin 20 mg PO DAILY Tobacco use date assessed: 05/15/23 HPI Follow up Labs~ HPI Details Patient is 47-year-old female this is a telemedicine visit She had labs recently her fasting sugar came back at 149 Patient have a strong family history of diabetes I have added hemoglobin A1c she will have it done today and then we will decide if she should be on medication or diet alone I also offered a printed circuit board layout designer consultation, patient says that for now she is going to try her on diet modification Also complaining of sore back and joints and 1 vitamin-D checked. [facility] Medical History Breast mass, right Degenerative disc disease Family history of early CAD High cholesterol History of anxiety History of depression Hx of migraine headaches Hypertension Morbid obesity Morbid obesity Osteoarthritis Panic attacks PTSD (post-traumatic stress disorder) TMJ (dislocation of temporomandibular joint) Surgical History History of foot surgery History of knee surgery Family History Father Diabetes mellitus HTN (hypertension) Hyperlipidemia CVD (cardiovascular disease) Myocardial infarction Stroke Mother Diabetes mellitus HTN (hypertension) Cervical cancer Maternal Grandmother Alzheimer's disease Maternal Grandfather Alzheimer's disease Paternal Grandfather Brain cancer Tongue cancer Paternal Grandmother Breast cancer Maternal Aunt Diabetes mellitus CVD (cardiovascular disease) Heart disease Brother No problems noted. Brother No problems noted. Sister No problems noted. Sister No problems noted. Son No problems noted. Son No problems noted. Son No problems noted. Daughter No problems noted. Other Mental health disorder Substance use disorder Social History Housing: House Alcohol intake: current Alcohol intake frequency: holidays/special occasions only Patient Tobacco Use Status: Former Tobacco user (15 years ago ) Years Smoked: 10 years e-Cigarette/Vaping Use: Never Used service: No Current occupational status: unemployed Cognitive needs: No Hearing needs: No Vision needs: Yes Female Reproductive History Menstrual Age of Menarche: 11 Questionnaire Thrive Questionnaire Date Thrive assessed: 11/21/22 CRYSTAL-7 AMB Questionnaire CRYSTAL-7 Date CRYSTAL - 7 assessed: 11/21/22 Source: Developed by Drs. Goyo Gil, Rupali Romeo, Heladio Tam and colleagues, with an educational clinton from [employer]. Review of Systems Const Denies chills and Denies fever(s) ENT Denies epistaxis and Denies nasal discharge Card Denies chest pain Resp Denies chest congestion, Denies cough and Denies hemoptysis GI Denies diarrhea and Denies nausea Skin/Breast Denies rash Neuro Reports no additional complaints Psych Reports no additional complaints Endo Reports no additional complaints Physical exam (Primary Care) Tobacco/Smoking Status: Tobacco use Status Tobacco use date assessed 05/15/23 06/01/23 07:31 Patient Tobacco Use Status Former Tobacco user (15 06/01/23 07:31 years ago ) e-Cigarette/Vaping Use Never Used 06/01/23 07:31 Thrive Assessment: Date of Thrive Assessment Date Thrive assessed 11/21/22 06/01/23 07:31 Telehealth Telehealth Location of provider rendering services: practice address Location of patient: address on file Patient Identification confirmed using: Name, : Yes Telehealth method: voice only Patient verbally consented to treatment: Yes Patient verbally consented to billing insurance company: Yes Patient informed of any privacy concerns related to visit: Yes Minutes spent on Phone/Video with Pt.: 14 Assessment and Plan Assessment & Plan (1) Elevated fasting blood sugar: Code(s): R73.01 - Impaired fasting glucose (2) Back pain: Code(s): M54.9 - Dorsalgia, unspecified Plan Patient is 47-year-old female this is a telemedicine visit She had labs recently her fasting sugar came back at 149 Patient have a strong family history of diabetes I have added hemoglobin A1c she will have it done today and then we will decide if she should be on medication or diet alone I also offered a printed circuit board layout designer consultation, patient says that for now she is going to try her on diet modification Also complaining of sore back and joints and 1 vitamin-D checked. Orders: Orders Hemoglobin A1c Today R73.01 - Impaired fasting glucose Vitamin D 25-OH (D2 and D3) Today M54.9 - Dorsalgia, unspecified Coding Level of Care Code Tele Est Pt Level 3 (64689) Diagnoses Elevated fasting blood sugar R73.01 Back pain M54.9
== END 2023-06-01 14:06 | disposition home or self-care (01) ==
LOC: HO.HMGC 07:34
PROVIDERS: PCP Internal Medicine; Visit Provider Internal Medicine
DX: R73.01 Impaired fasting glucose (principal); M54.9 Dorsalgia, unspecified
CPT/HCPCS: 99213

== ENCOUNTER 2023-08-10 11:18 | Outpatient (REF) | payer OTHER, SELFPAY ==
[2023-08-10 14:16] LABS: Cholesterol 111 mg/dL (<200); HDL Cholesterol 39 mg/dL (>40); LDL Cholesterol Calculated 53 mg/dL (<100); Triglycerides 96 mg/dL (<150)
[2023-08-10 14:29] LABS: Estimated Average Glucose 120 mg/dL; Hemoglobin A1c % 5.8 % (<6.0)
[2023-08-14 15:48] LABS: Vitamin D 25-OH, D2 <4 ng/mL; Vitamin D 25-OH, D3 17 ng/mL; Vitamin D 25-OH, Total 17 ng/mL (30-100)
== END 2023-08-10 11:19 | disposition home or self-care (01) ==
LOC: HO.HMGCLDS 11:18
PROVIDERS: Absent Provider Internal Medicine Cardiovascular Disease; PCP Internal Medicine; Visit Provider Internal Medicine
DX: I25.10 Atherosclerotic heart disease of native coronary artery without angina pectoris (principal); M54.9 Dorsalgia, unspecified; R73.01 Impaired fasting glucose
CPT/HCPCS: 36415; 80061; 82306; 83036